=== PATIENT | male | born 1975 | race Hispanic/Latino ===

== ENCOUNTER 2024-03-31 06:06 | Emergency (ER) | payer SELFPAY ==
[~2024-03-31] VITALS: Ht 180.3 cm; Wt 109.3 kg
[2024-03-31] MEDS: ondanSETRON 4MG INJ IVP ONE (06:48)
[2024-03-31] MEDS: hydroMORPHone 1 MG INJ IVP ONE (06:48)
--- NOTE | 2024-03-31 06:50 | ERN ---
ED Note History of Present Illness Stated Complaint: C/O ABD PAIN W/ N X V WITH PAIN TO LEFT TESTICLE Chief Complaint: Abdominal Pain Time Seen by MD: 06:16 Dictation: 48-year-old overweight male who presented to the emergency room with a excruciating left flank pain radiating to the front all the way to the left testicle started 2:00 p.m. yesterday. This also is associated with severe vomitings. He stated that it felt like a cramp initially and he has been miserable all day. No diarrhea no hematemesis or melena. No fevers or chills. No hematuria he does have pain when he urinates. He has a history of kidney stones in the past long time ago but it was not as bad as this. Temperature 98.2 pulse 97 respirations 20 blood pressure 147/93 pulse oximetry 97% on room air Allergies: Coded Allergies: aspirin (Unverified Allergy, Unknown, 03/31/24) Home Meds Active Scripts Acetaminophen with Codeine (Acetaminophen-Cod #3 Tablet) 300 Mg-30 Mg Tablet, 1 TAB PO BID PRN for pain for 7 Days, #14 TAB 0 Refills Prov:HERBERTH CAI MD 03/31/24 Tamsulosin HCl (Flomax) 0.4 Mg Cap.er.24h, 0.4 MG PO AM for 7 Days, #7 CAPSULE. Prov:GOLDEN TAYLOR MD 03/31/24 Cephalexin Monohydrate (Keflex) 500 Mg Cap, 500 MG PO BID for 4 Days, #8 CAP Prov:GOLDEN TAYLOR MD 03/31/24 Past Medical History Past Medical History: Kidney Stone Surgical History: None Family History: Negative Social History: Negative RN Note Reviewed/Agreed w/PFSH: Yes Review of System Dictation Constitutional: Negative for fever,chills, and weight loss Eyes: Negative for injury, pain,redness, and discharge ENT: Negative for injury,pain or swelling Cardiovascular: Negative for chest pain, palpitations, and edema Respiratory: Negative for shortness of breath, cough, and wheezing, Abdomen/GI: Positive for left flank pain, nausea, vomiting, no diarrhea, and constipation Back: Negative for injury and pain : Negative for injury, bleeding and discharge MS/Extremity: Negative for injury and deformity Skin: Negative for rash, and discoloration Neuro: Negative for headache, weakness, numbness, tingling, and seizure Psych: Negative for suicide ideation, homicidal ideation, and hallucinations Initial Vital Sign VS Vital Signs Date Time Temp Pulse Resp B/P (MAP) Pulse Ox O2 Delivery O2 Flow Rate FiO2 03/31/24 06:10 98.1 72 20 147/93 97 Room Air 03/31/24 08:17 0 21 Physical Exam Dictation General: awake, alert, NAD extremely uncomfortable Head/Face: Normocephalic, atraumatic Eyes: PERRL, EOMI, vision at baseline ENT: oral cavity clear, TMs clear, no signs of infection Neck: Trachea midline, supple, no nuchal rigidity Cardiovascular: RRR, normal S1/S2, No MRGs, no JVD Respiratory: CTAB, no respiratory distress, No rales or wheezes Abdomen: Soft, non-tender, non-distended, normal bowel sounds, no guarding or rebound. Skin: Warm, dry, normal turgor, no rash MS/Extremity: Pulses equal, no cyanosis, neurovascular intact, FROM Neuro: COAx4, GCS 15, strength 5/5, CN 2-12 intact, normal cerebellar exam, normal gait, Psych: Normal behavior, mood, and affect normal Extremities-trace edema without any palpable cords, Homans sign is negative Results (Laboratory/Radiology) Laboratory/Radiology Laboratory Tests Test 03/31/24 08:55 03/31/24 09:15 White Blood Count 10.1 K/uL (4.8-10.8) Red Blood Count 4.51 MIL/uL (4.50-6.20) Hemoglobin 14.3 g/dL (14.0-18.0) Hematocrit 40.7 % (42-54) L Mean Corpuscular Volume 90.2 fL (79-99) Mean Corpuscular Hemoglobin 31.7 pg (27.0-33.0) Mean Corpuscular Hemoglobin Concent 35.1 g/dL (32.0-36.0) Red Cell Distribution Width 12.3 % (11.0-15.5) Platelet Count 231 K/uL (130-400) Mean Platelet Volume 10.9 fL (7.5-10.5) H Immature Granulocyte % (Auto) 0.4 % (0-1) Neutrophils (%) (Auto) 84.9 % (40.0-77.0) H Lymphocytes (%) (Auto) 8.4 % (21.0-51.0) L Monocytes (%) (Auto) 6.0 % (3.0-13.0) Eosinophils (%) (Auto) 0.0 % (0.0-8.0) Basophils (%) (Auto) 0.3 % (0.0-5.0) Neutrophils # (Auto) 8.6 K/uL (1.8-7.7) H Lymphocytes # (Auto) 0.9 K/uL (1.0-4.8) L Monocytes # (Auto) 0.6 K/uL (0.1-1.0) Eosinophils # (Auto) 0.00 K/uL (0.00-0.70) Basophils # (Auto) 0.03 K/uL (0.00-0.20) Absolute Immature Granulocyte (auto 0.04 K/uL (0-1) Nucleated Red Blood Cells 0.0 % (0.0-0.19) Sodium Level 143 mmol/L (136-145) Potassium Level 4.0 mmol/L (3.5-5.1) Chloride Level 110 mmol/L (101-111) Carbon Dioxide Level 26 mmol/L (21-32) Blood Urea Nitrogen 17 mg/dL (7-18) Creatinine 1.1 mg/dL (0.5-1.3) Glomerular Filtration Rate Calc 83 mL/min (>90) Random Glucose 128 mg/dL (70-105) H Total Calcium 8.0 mg/dL (8.5-10.1) L Lipase 24 U/L (16-77) Urine Color LIGHT-YELLOW (YELLOW) Urine Appearance CLEAR (CLEAR) Urine pH 7.5 (5.0-8.0) Urine Specific [place] 1.022 (1.001-1.031) Urine Protein 10 mg/dL (NEGATIVE) H Urine Glucose (UA) NEGATIVE mg/dL (NEGATIVE) Urine Ketones NEGATIVE mg/dL (NEGATIVE) Urine Occult Blood NEGATIVE (NEGATIVE) Urine Nitrate NEGATIVE (NEGATIVE) Urine Bilirubin NEGATIVE mg/dL (NEGATIVE) Urine Urobilinogen 0.2 mg/dL (0.2-1.0) Urine Leukocyte Esterase NEGATIVE Alli/uL Urine RBC 11-25 /HPF (0-1) H Urine WBC 0-1 /HPF (0-1) Urine Bacteria RARE /HPF (None Seen) Labs Reviewed?: Yes CT Scan Comment: PATIENT: KRISTEN LEWIS MR#: [id number] : 1975 SEX: M AGE: 48 LOCATION: [facility] ORDER 6 STATUS: REG ER REPORT#: [id number] SERVICE 5 REASON: FLANK ORDERING PHYSICIAN: HERBERTH CAI MD PROCEDURE: ABD PEL WO - CT ABDOMEN/PELVIS W/O CONTRAST CT ABDOMEN/PELVIS W/O CONTRAST HISTORY: Left flank pain COMPARISON: None TECHNIQUE: Multiple sequential axial images of the abdomen and pelvis were obtained from the dome of the diaphragm through symphysis pubis. Patient was not given contrast through intravenous route. Oral contrast was not given. FINDINGS: No pleural effusion is seen bilaterally. There is no evidence of parenchymal disease or pulmonary nodule of the visualized lower lungs. Degenerative changes of the thoracolumbar spine are present. The heart is not enlarged. Liver is enlarged with fatty changes measuring 19 cm The liver, spleen, adrenal glands and pancreas are unremarkable. No hydronephrosis is seen on the right. There is mild left hydronephrosis with 3 mm renal stone in the left UV junction. Fecal material is seen in the colon. There are normal size retroperitoneal and mesenteric lymph nodes. No ascites is seen. Atherosclerotic changes are present. Pelvic sidewalls are symmetric bilaterally. Bladder is well distended without wall thickening. IMPRESSION: 1. There is mild left hydronephrosis with 3 mm renal stone in the left UV junction. CT was performed with one or more following dose reduction techniques: automated exposure control, adjustment of the mA and kv according to patient's size, or use of a iterative reconstruction technique. DICTATED BY: KATIE KRAUS MD DATE: 03/31/24825 ELECTRONICALLY SIGNED BY: KATIE KRAUS MD DATE: 03/31/24836 ED Course ED Course Orders Procedure Category Date Status Time Vital Signs Per CPOE 03/31/24 Transmitted Routine 06:17 Saline Lock Iv CPOE 03/31/24 Transmitted 06:17 Cbc With Differential LAB 03/31/24 In Process 06:17 Lipase LAB 03/31/24 Complete 06:17 Urinalysis Profile LAB 03/31/24 Complete 06:17 Basic Metabolic Panel LAB 03/31/24 Complete 06:17 Hydromorphone 1 Mg PHA 03/31/24 Complete Inj (Dilaudid 1mg Inj 07:00 Ondansetron 4mg Inj PHA 03/31/24 Complete (Zofran 4mg Inj) 07:00 0.9%Nacl 1000ml (Ns PHA 03/31/24 Complete 1000ml) 07:00 Ct Abdomen/Pelvis W/O CT 03/31/24 Resulted Contrast 07:16 Tamsulosin Hcl PHA 03/31/24 Complete (Flomax) 09:00 Current Medications Medications (Trade) Dose Ordered Sig/Monie Route PRN Reason Start Time Stop Time Status Last Admin Dose Admin Hydromorphone HCl (DiLAUDid 1MG INJ) 1 mg ONCE ONCE IVP 03/31/24 07:00 03/31/24 08:16 DC 03/31/24 06:48 Ondansetron HCl (zoFRAN 4MG INJ) 4 mg ONCE ONCE IVP 03/31/24 07:00 03/31/24 08:16 DC 03/31/24 06:48 Sodium Chloride 1,000 ml @ 0 mls/hr ONCE ONCE IV 03/31/24 07:00 03/31/24 08:16 DC 03/31/24 08:14 Tamsulosin HCl (FloMAX) 0.4 mg ONCE ONCE PO 03/31/24 09:00 03/31/24 09:01 DC 03/31/24 09:20 Vital Signs Date Time Temp Pulse Resp B/P (MAP) Pulse Ox O2 Delivery O2 Flow Rate FiO2 03/31/24 09:47 97.9 70 16 133/84 98 Room Air* 0 21 03/31/24 08:17 97.9 72 18 138/87 96 Room Air* 0 21 03/31/24 06:10 98.1 72 20 147/93 97 Room Air We will perform diagnostic labs, advanced imaging and administer medications according to the patient's complaint. Once the results are available, will review and personally interpreted the labs to rule out any acute life- threatening emergency the trach require immediate intervention and treatment. I will then re-evaluate the patient after treatment and diagnostic exams have return to determine whether the patient requires any further testing, can safely be discharged home or need further admission to hospital for additional treatment and evaluation. Medical Decision Making MDM INITIAL IMPRESSION Initial history and physical concerning for Renal colic, UTI , Pyelonephritis, musculoskeletal pain , Inguinal Hernia Contributing medical problems: Past history of renal stones I have reviewed the triage nursing notes and vital signs. Initial plan: Laboratory evaluation and x-ray DATA REVIEW I have reviewed additional NN, repeat VS, and monitoring where indicated. Heart rate, blood pressure, and O2 saturation are acceptable. ED COURSE Interventions: Patient has been given fluids and pain management Reassessment: Patient is resting comfortably after the pain medication is given DISPOSITION Final diagnostic impression: Nephrolithiasis with a 3.3 mm stone obstructing left uretero vesicular junction I discussed my findings, clinical impression and treatment recommendations with the patient I have reviewed the social factors contributing to the patient's presentation and disposition planning. My final plan for disposition was made based upon -mild risk of complications and potential morbidity of the patient's condition. -Discussion with the patient regarding management options. Patient has been plan to be discharged with pain medication and follow up outpatient with the urologist for the management. Problem List Problem List: (1) Left flank pain (2) Renal colic on left side (3) Nephrolithiasis DX & DISP Disposition: Discharge Departure Impression: Primary Impression: Left flank pain Additional Impressions: Renal colic on left side, Nephrolithiasis Condition: Stable Scripts Acetaminophen with Codeine (Acetaminophen-Cod #3 Tablet) 300 Mg-30 Mg Tablet 1 TAB PO BID PRN for pain for 7 Days, #14 TAB 0 Refills Prov: HERBERTH CAI MD 03/31/24 Tamsulosin HCl (Flomax) 0.4 Mg Cap.er.24h 0.4 MG PO AM for 7 Days, #7 CAPSULE.DR Prov: GOLDEN TAYLOR MD 03/31/24 Cephalexin Monohydrate (Keflex) 500 Mg Cap 500 MG PO BID for 4 Days, #8 CAP Prov: GOLDEN TAYLOR MD 03/31/24 Additional Instructions: Please come back to the ER if you have any acute or emergency symptoms Drink plenty of fluids. If you have kidney, heart, or liver disease and have to limit fluids, talk with your doctor before you increase the amount of fluids you drink. Limit coffee, tea, and alcohol. Also avoid grapefruit juice. Do not take more than the recommended daily dose of vitamins C and D. Avoid antacids such as Gaviscon or Tums. Limit the amount of salt (sodium) in your diet. Eat a balanced diet that is not too high in protein. Limit foods that are high in a substance called oxalate, which can cause kidney stones. These foods include dark green vegetables, rhubarb, chocolate, wheat bran, nuts, cranberries, and beans. Take medication as prescribed Follow up with your primary care provider in 3 days Consult a urologist and follow up him Referrals: SELF,REFERRAL (PCP) BRANDI SOUSA MD Time of Disposition: 09:38 I have reviewed I have reviewed the case I WAS PRESENT AND PARTICIPATED IN THE CARE OF THIS PATIENT ALONGSIDE WITH THE RESIDENT PHYSICIAN. I HAVE REVIEWED AND PERSONALLY MADE AND APPROVED THE MANAGEMENT PLAN THAT IS DOCUMENTED IN THE NOTE BY MYSELF WITH THE RESIDENT PHYSICIAN. I ACKNOWLEDGED FOR RESPONSIBILITY FOR THE PATIENT'S MANAGEMENT PLAN. I have examined patient DEA COOPER MD Mar 31, 2024 06:50 GOLDEN TAYLOR MD Mar 31, 2024 08:47 HERBERTH CAI MD Mar 31, 2024 09:50
[2024-03-31] MEDS: 0.9%NACL 1000ML 1,000 ML IV ONE (08:14)
--- NOTE | 2024-03-31 08:37 | HMCIMG ---
CT ABDOMEN/PELVIS W/O CONTRAST HISTORY: Left flank pain COMPARISON: None TECHNIQUE: Multiple sequential axial images of the abdomen and pelvis were obtained from the dome of the diaphragm through symphysis pubis. Patient was not given contrast through intravenous route. Oral contrast was not given. FINDINGS: No pleural effusion is seen bilaterally. There is no evidence of parenchymal disease or pulmonary nodule of the visualized lower lungs. Degenerative changes of the thoracolumbar spine are present. The heart is not enlarged. Liver is enlarged with fatty changes measuring 19 cm The liver, spleen, adrenal glands and pancreas are unremarkable. No hydronephrosis is seen on the right. There is mild left hydronephrosis with 3 mm renal stone in the left UV junction. Fecal material is seen in the colon. There are normal size retroperitoneal and mesenteric lymph nodes. No ascites is seen. Atherosclerotic changes are present. Pelvic sidewalls are symmetric bilaterally. Bladder is well distended without wall thickening. IMPRESSION: 1. There is mild left hydronephrosis with 3 mm renal stone in the left UV junction. CT was performed with one or more following dose reduction techniques: automated exposure control, adjustment of the mA and kv according to patient's size, or use of a iterative reconstruction technique.
[2024-03-31 09:13] LABS: BASOPHILS # (AUTO) 0.03 K/uL (0.00-0.20); BASOPHILS % (AUTO) 0.3 % (0.0-5.0); HEMATOCRIT 40.7 % (42-54); IMMATURE GRANULOCYTE ABSOLUTE 0.04 K/uL (0-1); LYMPHOCYTES # (AUTO) 0.9 K/uL (1.0-4.8); LYMPHOCYTES % (AUTO) 8.4 % (21.0-51.0); MEAN CORPUSCULAR HEMOGLOBIN 31.7 pg (27.0-33.0); MEAN CORPUSCULAR HGB CONC 35.1 g/dL (32.0-36.0); MEAN CORPUSCULAR VOLUME 90.2 fL (79-99); MONOCYTES # (AUTO) 0.6 K/uL (0.1-1.0); NEUTROPHILS # (AUTO) 8.6 K/uL (1.8-7.7); NEUTROPHILS % (AUTO) 84.9 % (40.0-77.0); PLATELET COUNT (AUTO) 231 K/uL (130-400); RED BLOOD CELL COUNT(AUTO) 4.51 MIL/uL (4.50-6.20); RED CELL DISTRIBUTION WIDTH 12.3 % (11.0-15.5); WHITE BLOOD COUNT (AUTO) 10.1 K/uL (4.8-10.8)
[2024-03-31] MEDS: tamSULOsin HCL 0.4 MG CAP.ER.24H PO ONE (09:20)
[2024-03-31 09:24] LABS: CREATININE 1.1 mg/dL (0.5-1.3)
[2024-03-31 09:26] LABS: APPEARANCE,URINE CLEAR (CLEAR); BILIRUBIN,URINE NEGATIVE (NEGATIVE); COLOR,URINE LIGHT-YELLOW (YELLOW); GLUCOSE, URINE (UA) NEGATIVE (NEGATIVE); KETONES,URINE NEGATIVE (NEGATIVE); LEUKOCYTE ESTERASE ,URINE NEGATIVE Leu/uL (NEGATIVE); NITRATE,URINE NEGATIVE (NEGATIVE); OCCULT BLOOD,URINE NEGATIVE (NEGATIVE); PH,URINE 7.5 (5.0-8.0); PROTEIN,URINE 10 mg/dL (NEGATIVE); UROBILINOGEN,URINE 0.2 mg/dL (0.2-1.0)
[2024-03-31 09:27] LABS: ADD UA MICROSCOPIC YES
[2024-03-31 09:28] LABS: BACTERIA,URINE RARE /HPF (None Seen); MUCUS,URINE RARE LPF (None Seen); WBC,URINE 0-1 /HPF (0-1)
[2024-03-31] MEDS ORDERED: TAMS-1 PO (09:42)
[2024-03-31] MEDS ORDERED: CEPH500B PO (09:42)
[2024-03-31] MEDS ORDERED: ACET-2079 PO (09:46)
[2024-03-31 09:47] VITALS: BP 133/84; PULSE 70; RESP 16; TEMP 97.9; O2SAT 98
== END 2024-03-31 09:49 | disposition home or self-care (01) ==
LOC: EDH 06:06
DX: N13.2 Hydronephrosis with renal and ureteral calculous obstruction (principal); R10.9 Unspecified abdominal pain; Z88.6 Allergy status to analgesic agent
CPT/HCPCS: 99285; 74176; 96374; 96361; 96375; 80048; 83690; 85025; 81001; 36415; J1171; J7030; J2405

== ENCOUNTER 2024-04-03 02:31 | Emergency (ER) | payer SELFPAY ==
[~2024-04-03] VITALS: Ht 180.3 cm; Wt 104.3 kg
[~2024-04-03 02:31] MED LIST: ACET-2079 PO; CEPH500B PO; TAMS-1 PO
[2024-04-03 02:59] LABS: BASOPHILS # (AUTO) 0.04 K/uL (0.00-0.20); BASOPHILS % (AUTO) 0.4 % (0.0-5.0); EOSINOPHILS # (AUTO) 0.08 K/uL (0.00-0.70); EOSINOPHILS % (AUTO) 0.8 % (0.0-8.0); HEMATOCRIT 39.9 % (42-54); IMMATURE GRANULOCYTE ABSOLUTE 0.03 K/uL (0-1); LYMPHOCYTES # (AUTO) 1.5 K/uL (1.0-4.8); LYMPHOCYTES % (AUTO) 15.4 % (21.0-51.0); MEAN CORPUSCULAR HEMOGLOBIN 31.6 pg (27.0-33.0); MEAN CORPUSCULAR HGB CONC 35.8 g/dL (32.0-36.0); MEAN CORPUSCULAR VOLUME 88.1 fL (79-99); MONOCYTES # (AUTO) 0.7 K/uL (0.1-1.0); MONOCYTES % (AUTO) 6.6 % (3.0-13.0); NEUTROPHILS # (AUTO) 7.6 K/uL (1.8-7.7); NEUTROPHILS % (AUTO) 76.5 % (40.0-77.0); PLATELET COUNT (AUTO) 232 K/uL (130-400); RED BLOOD CELL COUNT(AUTO) 4.53 MIL/uL (4.50-6.20); WHITE BLOOD COUNT (AUTO) 9.9 K/uL (4.8-10.8)
[2024-04-03] MEDS: LACTATED RINGERS 1000ML 1,000 ML IV ONE (03:00)
[2024-04-03] MEDS: hydroMORPHone 1 MG INJ IVP ONE ×2 (03:00→03:34)
[2024-04-03] MEDS: ondanSETRON 4MG INJ IVP ONE (03:00)
[2024-04-03 03:07] LABS: CREATININE 1.3 mg/dL (0.5-1.3)
[2024-04-03 03:08] VITALS: TEMP 98.2
--- NOTE | 2024-04-03 03:09 | ERN ---
General Chief Complaint: Abdominal Pain Stated Complaint: C/O LLQ PAIN W/ N X V AND TESTICULAR PAIN Time Seen by MD: 02:43 History of Present Illness Initial Comments Mr. Martinez is a very pleasant 48-year-old male with a past medical history of renal stones who comes in today with a chief complaint of abdominal pain. Patient was recently seen for similar presentation of left lower quadrant pain that radiate to the left groin. He was found to have a renal stone and was discharged with Flomax and antibiotics. Patient reports today that he has had worsening pain comes in for further evaluation and pain Allergies: Coded Allergies: aspirin (Unverified Allergy, Unknown, 03/31/24) Home Meds Active Scripts Acetaminophen with Codeine (Acetaminophen-Cod #3 Tablet) 300 Mg-30 Mg Tablet, 1 TAB PO BID PRN for pain for 7 Days, #14 TAB 0 Refills Prov:HERBERTH CAI MD 03/31/24 Tamsulosin HCl (Flomax) 0.4 Mg Cap.er.24h, 0.4 MG PO AM for 7 Days, #7 CAPSULE.DR Prov:GOLDEN TAYLOR MD 03/31/24 Cephalexin Monohydrate (Keflex) 500 Mg Cap, 500 MG PO BID for 4 Days, #8 CAP Prov:GOLDEN TAYLOR MD 03/31/24 Past Medical History Past Medical History: Other Medical History Other: HX OF KIDNEY STONES Past Surgical History: Unknown Family History Family History: Negative Social History Social History: Negative ROS Dictation Constitutional: Negative for fever,chills, and weight loss Eyes: Negative for injury, pain,redness, and discharge ENT: Negative for injury,pain or swelling Cardiovascular: Negative for chest pain, palpitations, and edema Respiratory: Negative for shortness of breath, cough, and wheezing, Abdomen/GI: Positive for abdominal pain Back: Negative for injury and pain : Negative for injury, bleeding and discharge MS/Extremity: Negative for injury and deformity Skin: Negative for rash, and discoloration Neuro: Negative for headache, weakness, numbness, tingling, and seizure Psych: Negative for suicide ideation, homicidal ideation, and hallucinations Physical Exam Physical Exam Dictation General: awake, alert, NAD Head/Face: Normocephalic, atraumatic Eyes: PERRL, EOMI, vision at baseline ENT: oral cavity clear Neck: Trachea midline, supple, no nuchal rigidity Cardiovascular: RRR, normal S1/S2, Respiratory: CTAB, no respiratory distress, No rales or wheezes Abdomen: Pain with palpation in the left lower quadrant Skin: Warm, dry, normal turgor, no rash MS/Extremity: Pulses equal, no cyanosis, neurovascular intact, FROM Neuro: COAx4, GCS 15, strength 5/5, CN 2-12 intact Psych: Normal behavior, mood, and affect normal Results Laboratory and Microbiology Lab and Micro Result Laboratory Tests Test 04/03/24 02:53 04/03/24 03:43 White Blood Count 9.9 K/uL (4.8-10.8) Red Blood Count 4.53 MIL/uL (4.50-6.20) Hemoglobin 14.3 g/dL (14.0-18.0) Hematocrit 39.9 % (42-54) L Mean Corpuscular Volume 88.1 fL (79-99) Mean Corpuscular Hemoglobin 31.6 pg (27.0-33.0) Mean Corpuscular Hemoglobin Concent 35.8 g/dL (32.0-36.0) Red Cell Distribution Width 12.0 % (11.0-15.5) Platelet Count 232 K/uL (130-400) Mean Platelet Volume 10.8 fL (7.5-10.5) H Immature Granulocyte % (Auto) 0.3 % (0-1) Neutrophils (%) (Auto) 76.5 % (40.0-77.0) Lymphocytes (%) (Auto) 15.4 % (21.0-51.0) L Monocytes (%) (Auto) 6.6 % (3.0-13.0) Eosinophils (%) (Auto) 0.8 % (0.0-8.0) Basophils (%) (Auto) 0.4 % (0.0-5.0) Neutrophils # (Auto) 7.6 K/uL (1.8-7.7) Lymphocytes # (Auto) 1.5 K/uL (1.0-4.8) Monocytes # (Auto) 0.7 K/uL (0.1-1.0) Eosinophils # (Auto) 0.08 K/uL (0.00-0.70) Basophils # (Auto) 0.04 K/uL (0.00-0.20) Absolute Immature Granulocyte (auto 0.03 K/uL (0-1) Nucleated Red Blood Cells 0.0 % (0.0-0.19) Sodium Level 140 mmol/L (136-145) Potassium Level 4.0 mmol/L (3.5-5.1) Chloride Level 104 mmol/L (101-111) Carbon Dioxide Level 27 mmol/L (21-32) Blood Urea Nitrogen 12 mg/dL (7-18) Creatinine 1.3 mg/dL (0.5-1.3) Glomerular Filtration Rate Calc 68 mL/min (>90) Random Glucose 121 mg/dL (70-105) H Total Calcium 8.6 mg/dL (8.5-10.1) Lipase 25 U/L (16-77) Urine Color COLORLESS (YELLOW) Urine Appearance CLEAR (CLEAR) Urine pH 7.0 (5.0-8.0) Urine Specific [place] 1.022 (1.001-1.031) Urine Protein NEGATIVE mg/dL (NEGATIVE) Urine Glucose (UA) NEGATIVE mg/dL (NEGATIVE) Urine Ketones NEGATIVE mg/dL (NEGATIVE) Urine Occult Blood NEGATIVE (NEGATIVE) Urine Nitrate NEGATIVE (NEGATIVE) Urine Bilirubin NEGATIVE mg/dL (NEGATIVE) Urine Urobilinogen 0.2 mg/dL (0.2-1.0) Urine Leukocyte Esterase NEGATIVE Alli/uL MDM Patient was repeat CT shows unchanged mild left hydronephrosis with 2 mm distal urethral stone now progressing to the UVJ. Patient was now currently pain-free. Patient was Flomax and pain medicine at home. Patient will follow up PCP/urolo gist MDM: Differential diagnosis: Ureteral stone Rationale: Tests considered and ordered secondary to shared decision making include: Previous outside records reviewed: Old ER visits. Risk of complication and/or morbidity or mortality of patient management: None Medications-Per medication reconciliation Need for hospitalization: Patient does not meet criteria for hospitalization. Need for emergency major/minor surgery: No There are no social concerns with this patient. Prescription drug management Prescriptions will include symptomatic care Patient's prior external medical records from other ER visits were reviewed by me as indicated. Prior testing and results from previous visits were reviewed. Prior tests were taken into account with medical decision making and resource utilization, independent historian/historians were used to obtain complete medical history. I independently interpreted the test that were performed, results were reviewed by me and considered findings on radiology if ordered. Medical management and examination interpretation discussions were had by me with other qualified healthcare professionals as indicated for the patient's care. ED Course Orders Procedure Category Date Status Time Vital Signs Per CPOE 04/03/24 Transmitted Routine 02:36 Saline Lock Iv CPOE 04/03/24 Transmitted 02:36 Cbc With Differential LAB 04/03/24 Complete 02:36 Lipase LAB 04/03/24 Complete 02:36 Urinalysis Profile LAB 04/03/24 Complete 02:36 Basic Metabolic Panel LAB 04/03/24 Complete 02:36 Ct Abdomen/Pelvis CT 04/03/24 Taken W/Contrast 02:46 Lactated Ringers PHA 04/03/24 Complete 1000ml (Lactated 03:00 Hydromorphone 1 Mg PHA 04/03/24 Complete Inj (Dilaudid 1mg Inj 03:00 Ondansetron 4mg Inj PHA 04/03/24 Complete (Zofran 4mg Inj) 03:00 Iohexol (Omnipaque) PHA 04/03/24 Complete 03:16 Hydromorphone 1 Mg PHA 04/03/24 Complete Inj (Dilaudid 1mg Inj 03:30 Morphine 4mg Syg PHA 04/03/24 Complete (Morphine 4mg Syg) 04:30 Current Medications Medications (Trade) Dose Ordered Sig/Monie Route PRN Reason Start Time Stop Time Status Last Admin Dose Admin Hydromorphone HCl (DiLAUDid 1MG INJ) 1 mg ONCE ONCE IVP 04/03/24 03:00 04/03/24 03:01 DC 04/03/24 03:00 Hydromorphone HCl (DiLAUDid 1MG INJ) 1 mg ONCE ONCE IVP 04/03/24 03:30 04/03/24 03:31 DC 04/03/24 03:34 Iohexol (Omnipaque) 35,000 mg STK-MED ONCE IV 04/03/24 03:16 04/03/24 03:17 DC Lactated Ringer's 1,000 ml @ 0 mls/hr ONCE ONCE IV 04/03/24 03:00 04/03/24 03:01 DC 04/03/24 03:00 Morphine Sulfate (morPHINE 4MG SYG) 4 mg ONCE ONCE IVP 04/03/24 04:30 04/03/24 04:31 DC 04/03/24 04:06 Ondansetron HCl (zoFRAN 4MG INJ) 4 mg ONCE ONCE IVP 04/03/24 03:00 04/03/24 03:01 DC 04/03/24 03:00 Vital Signs Date Time Temp Pulse Resp B/P (MAP) Pulse Ox O2 Delivery O2 Flow Rate FiO2 04/03/24 05:09 69 16 161/100 97 Room Air* 0 04/03/24 03:08 98.2 70 16 152/97 97 Room Air* 0 04/03/24 02:32 98.1 77 20 129/92 97 Room Air DX & DISP Disposition: Discharge Departure Impression: Primary Impression: Renal colic on left side Condition: Stable Additional Instructions: Please follow up with your primary care physician/urologist in the next 1-7 days for continuance of care. Please continue to drink plenty of fluids and taking Flomax to help expel stone Referrals: SELF,REFERRAL (PCP) ALEXIS CLARK MD Apr 03, 2024 03:09
[2024-04-03] MEDS ORDERED: IOHEXOL 350 MG/ML 100ML INFUS..BTL IV ONE (03:16)
--- NOTE | 2024-04-03 03:41 | NUR ---
PT TAKEN TO CT SCAN AT THIS TIME
[2024-04-03] MEDS: morPHINE 4 MG SYG IVP ONE (04:06)
[2024-04-03 04:08] LABS: APPEARANCE,URINE CLEAR (CLEAR); BILIRUBIN,URINE NEGATIVE (NEGATIVE); COLOR,URINE COLORLESS (YELLOW); GLUCOSE, URINE (UA) NEGATIVE (NEGATIVE); KETONES,URINE NEGATIVE (NEGATIVE); LEUKOCYTE ESTERASE ,URINE NEGATIVE Leu/uL (NEGATIVE); NITRATE,URINE NEGATIVE (NEGATIVE); OCCULT BLOOD,URINE NEGATIVE (NEGATIVE); PROTEIN,URINE NEGATIVE (NEGATIVE); UROBILINOGEN,URINE 0.2 mg/dL (0.2-1.0)
[2024-04-03 04:11] LABS: ADD UA MICROSCOPIC NO
[2024-04-03 05:09] VITALS: BP 161/100; PULSE 69; RESP 16; O2SAT 97
--- NOTE | 2024-04-03 08:36 | HMCIMG ---
CT ABDOMEN/PELVIS W/CONTRAST HISTORY: Abdominal pain COMPARISON: 03/31/2024 TECHNIQUE: Multiple sequential axial images of the abdomen and pelvis were obtained from the dome of the diaphragm through symphysis pubis. Patient was not given contrast through intravenous route. Oral contrast was not given. FINDINGS: No pleural effusion is seen bilaterally. There is no evidence of parenchymal disease or pulmonary nodule of the visualized lower lungs. Degenerative changes of the thoracolumbar spine are present. The heart is not enlarged. Gallbladder is distended. The liver, spleen, adrenal glands and pancreas are unremarkable. No hydronephrosis is seen on the right. There is mild left hydronephrosis with 2 mm renal stone now seen in the left UV junction. There is left renal cyst measuring 18 mm. There is minimal sigmoid colon wall thickening with minimal adjacent fat stranding suggestive of early acute diverticulitis. No focal abscess is seen. Fecal material is seen in the colon. There are normal size retroperitoneal and mesenteric lymph nodes. No ascites is seen. Atherosclerotic changes are present. Pelvic sidewalls are symmetric bilaterally. Bladder is well distended without wall thickening. IMPRESSION: 1. There is mild left hydronephrosis with 2 mm renal stone now seen in the left UV junction. There is minimal sigmoid colon wall thickening with minimal adjacent fat stranding suggestive of early acute diverticulitis. No focal abscess is seen. CT was performed with one or more following dose reduction techniques: automated exposure control, adjustment of the mA and kv according to patient's size, or use of a iterative reconstruction technique.
== END 2024-04-03 05:36 | disposition home or self-care (01) ==
LOC: EDH 02:31
DX: N13.2 Hydronephrosis with renal and ureteral calculous obstruction (principal); Z79.899 Other long term (current) drug therapy; Z88.6 Allergy status to analgesic agent
CPT/HCPCS: 99285; 74177; 96374; 96375; 96361; 80048; 83690; 85025; 81003; 36415; 96376; J7120; J1171 ×2; J2405; J2270; Q9967